=== PATIENT | female | born 1975 | race Two or more races ===

== ENCOUNTER 2020-07-17 15:12 | Emergency (ER) | payer BC, OTHER ==
[~2020-07-17] VITALS: Ht 154.9 cm; Wt 72.6 kg
[2020-07-17 16:40] VITALS: BP 130/93
[2020-07-17] MEDS ORDERED: HYDROcodone-ACET 10/325MG TAB PO ONE (16:45)
== END 2020-07-17 18:26 | disposition home or self-care (01) ==
LOC: ER 15:12
DX: S92.001A Unspecified fracture of right calcaneus, initial encounter for closed fracture (principal); I83.891 Varicose veins of right lower extremity with other complications; W19.XXXA Unspecified fall, initial encounter; Y93.89 Activity, other specified; Y92.89 Other specified places as the place of occurrence of the external cause; Y99.8 Other external cause status
CPT/HCPCS: 29515; 73610